=== PATIENT | male | born 1970 | race Caucasian/White ===

== ENCOUNTER 2019-04-24 10:51 | Emergency (ER) | payer SELFPAY ==
[2019-04-24 11:10] VITALS: BP 141/99
--- NOTE | 2019-04-24 11:10 | ER Report ---
History and Physical Time Seen By MD: 11:06 HPI/TAM CHIEF COMPLAINT: Blisters to bilateral feet HISTORY OF PRESENT ILLNESS: 48-year-old male patient present to emergency room with complaint of blisters bilateral feet. Patient states this been going on since yesterday. Patient states that prior to that he had swelling to bilateral feet. Patient states that he got to work, informed to purchase socks and has some compression on the. He states when he got home he then smoked in was wearing his flip-flops. He states that when he woke up yesterday morning he had blisters. He states that he thought that those were stairs. Patient states that he has pain with ambulation. He denies any fevers, chills, nausea, vomiting or diarrhea. Patient states that he has not done anything for this. He states he did think about taking a needle and opening up the blister. Patient states he has a long-standing history of hypertension for which he takes multiple medications, including metoprolol, lisinopril and TriCor thiazide. He states that he has not taken those as he doesn't have a major for them. Allergies: Coded Allergies: insect venom (Verified Allergy, Intermediate, 04/24/19) Home Meds Active Scripts Cephalexin 500 Mg Tab (KEFLEX 500 MG TAB) 500 Mg Tablet, 500 MG PO Q6H, #28 TAB Prov:BRENT REDDYSSE SILK SPOTTER 04/24/19 Reported Medications Aspirin (ASPIR 81) 81 Mg Tablet., 81 MG PO QDAY, TAB 04/24/19 Omeprazole Magnesium (PRILOSEC OTC) 20 Mg Tablet., 1 TAB PO BID, TAB 04/24/19 Past Medical/Surgical History Patient has a past medical history angina, hypertension, chronic bronchitis, reflux, back pain, alcohol use, depression. Patient has a surgical history of an umbilical hernia repair, appendectomy. Reviewed Nurses Notes: Yes Constitutional Vital Sign - Last 24 Hours 04/24/19 11:10 Temp 98.3 Pulse 81 Resp 16 B/P (MAP) 141/99 Pulse Ox 91 O2 Delivery Room Air Physical Exam General appearance: Alert no distress. Respiratory: Chest is non tender, lungs are clear to auscultation. Cardiac: Regular rate and rhythm. Skin: Patient has blisters to bilateral feet. They are in the same location, consistent with where he is strep on his sandals rub. There is no redness, no erythema. There is no warmth to touch. DIFFERENTIAL DIAGNOSIS: After history and physical exam differential diagnosis was considered for blisters secondary to edema, abscess, infection, atopic dermatitis. Medical Decision Making Data Points Microbiology Microbiology Date/Time Source Procedure Growth Status 04/24/19 11:45 Drainage Gram Stain - Final Resulted 04/24/19 11:45 Drainage Wound Culture Pending Resulted ED Course/Re-evaluation ED Course Patient was admitted to an exam room, history and physical were obtained. Differential diagnoses were considered. I examination lungs are clear, heart is regular. Patient does have blisters to bilateral feet. They're fluctuant, there is no erythema around them. With patient consent an 18-gauge needle was inserted into both blisters. I was able to drain out serous fluid. The feet were then covered with Telfa pad and then wrapped with Kerlix. Patient tolerated procedure well. A culture was obtained and was sent to the lab. Patient will be started on Keflex to prevent infection and treat any possible infection. He is return to emergency room if condition worsens. He is to follow-up with the [facility] next week. He is to call to make an appointment. Patient verbalized understanding and agreement with plan. Decision to Disposition Date: Apr 24, 2019 Decision to Disposition Time: 11:23 Depart Departure Latest Vital Signs Vital Signs Date Time Temp Pulse Resp B/P (MAP) Pulse Ox O2 Delivery O2 Flow Rate FiO2 04/24/19 11:10 98.3 81 16 141/99 91 Room Air Impression: Primary Impression: Blister of foot Condition: Improved Disposition: HOME OR SELF-CARE New Scripts Cephalexin 500 Mg Tab (KEFLEX 500 MG TAB) 500 Mg Tablet 500 MG PO Q6H, #28 TAB Prov: BARBY REDDY 04/24/19 Patient Instructions: Blister (ED) Additional Instructions: Limit activity by pain. Change the dressing as needed. Follow up with [facility]. Return to the ER if condition worsens. We will call with the culture results when they are available, if we have to change antibiotics. Take Tylenol or Ibuprofen as needed for pain. Problem Qualifiers Primary Impression: Blister of foot Encounter type: initial encounter Laterality: unspecified laterality Qualified Codes: S90.829A - Blister (nonthermal), unspecified foot, initial encounter BARBY REDDY SILK SPOTTER Apr 24, 2019 11:10
[2019-04-24] MEDS ORDERED: ASPI-1471 PO (11:14)
[2019-04-24] MEDS ORDERED: OMEP-218 PO (11:14)
[2019-04-24] MEDS ORDERED: CEPH500T7 PO (11:27)
== END 2019-04-24 12:04 | disposition home or self-care (01) ==
LOC: ER 11:14
DX: S90.822A Blister (nonthermal), left foot, initial encounter (principal); S90.821A Blister (nonthermal), right foot, initial encounter
CPT/HCPCS: 87070; 87205; 99282